=== PATIENT | male | born 1975 | race Caucasian/White ===

== ENCOUNTER 2019-03-09 12:50 | Inpatient (IN) ==
[2019-03-09] MEDS ORDERED: Isovue-370 500 ML BOTTLE IVP ONE (13:36)
[2019-03-09] MEDS ORDERED: Ketorolac 30 MG/ML VIAL IVP ONE (13:39)
[2019-03-09 14:54] LABS: BUN/Creatinine Ratio 6 (6-26); Blood Urea Nitrogen 5 mg/dL (6-20); Calcium 9.1 mg/dL (8.6-10.3); Carbon Dioxide 25 mEq/L (23-29); Chloride 102 mEq/L (98-107); Glucose 90 mg/dL (70-105); Osmolality,Calculated 279 (280-300); Potassium 3.7 mEq/L (3.5-5.1); Sodium 136 mEq/L (136-145); eGFR For African Americans > 60 (> 60); eGFR For Non-African Americans > 60 (> 60)
[2019-03-09 15:09] LABS: Hematocrit 37.8 % (37.5-50.1); Hemoglobin 12.9 g/dL (12.9-16.9); Mean Corpuscular HGB Conc 34.1 g/dL (31.6-35.5); Mean Corpuscular Hemoglobin 34.7 pg (28.0-33.3); Mean Corpuscular Volume 101.6 fL (83.0-100.0); Mean Platelet Volume 10.4 fL (9.4-12.4); Platelet Count 165 K/mcL (140-400); Red Blood Count 3.72 M/mcL (4.19-5.50); Red Cell Distribution Width 13.6 % (11.5-14.5); White Blood Count 4.4 K/mcL (4.3-11.1)
[2019-03-09] MEDS ORDERED: *HR* Heparin 5,000 UNIT/ML VIAL IVP PRN ×2 (16:15)
[2019-03-09] MEDS ORDERED: *HR* Heparin 5,000 UNIT/ML VIAL IVP ONE (16:15)
[2019-03-09] MEDS ORDERED: 0.9 % Sodium Chloride 1,000 ML IVC ONE (16:20)
[2019-03-09] MEDS ORDERED: *HR* HYDROmorphone (PF) 1 MG/ML SYRINGE IVP ONE (16:20)
[2019-03-09] MEDS ORDERED: Clindamycin 600 MG/50 ML 600 MG/50 ML IV.SOLN IVPB ONE (16:30)
[2019-03-09 17:03] LABS: Heparin anti-factor XA UFH 0.01 IU/mL (0.30-0.70); INR 0.9; Prothrombin Time 9.7 Seconds (9.4-12.1)
[2019-03-09] MEDS: Heparin 25,000 UNIT/250 ML D5W 25,000 UNIT/250 ML IV.SOLN IVC SCH (17:07)
[2019-03-09] MEDS ORDERED: Naloxone 0.4 MG/ML INJ IVP PRN (17:42)
[2019-03-09] MEDS ORDERED: Acetaminophen 325 MG TABLET PO PRN (17:42)
[2019-03-09] MEDS ORDERED: Ondansetron ODT 4 MG TAB.RAPDIS SL PRN (17:42)
[2019-03-09] MEDS ORDERED: *HR* LORazepam 2 MG/ML VIAL IVP PRN ×3 (17:46)
[2019-03-09] MEDS ORDERED: Thiamine (B-1) 100 MG in 0.9 % Sodium Chloride 50 ML IVPB STA (18:17)
[2019-03-09] MEDS ORDERED: Vancomycin 500 MG in 0.9 % Sodium Chloride Mini Bag 100 ML IVPB ONE (18:30)
[2019-03-09] MEDS: *HR* LORazepam 1 MG TABLET PO PRN ×2 (18:55→23:40)
[2019-03-09] MEDS: Cefepime HCl 1,000 MG in Water for inj. (sterile) 10 ML IVP SCH (20:28)
[2019-03-09] MEDS ORDERED: NON-FORMULARY MEDICATION 1 EACH EACH (Buprenorphine Hcl/Naloxone Hcl [Suboxone 8 Mg-2 Mg S SL SCH (21:00)
[2019-03-10 02:58] LABS: Hematocrit 35.7 % (37.5-50.1); Mean Corpuscular HGB Conc 33.6 g/dL (31.6-35.5); Mean Corpuscular Hemoglobin 34.5 pg (28.0-33.3); Mean Corpuscular Volume 102.6 fL (83.0-100.0); Mean Platelet Volume 11.3 fL (9.4-12.4); Platelet Count 152 K/mcL (140-400); Red Blood Count 3.48 M/mcL (4.19-5.50); Red Cell Distribution Width 13.7 % (11.5-14.5); White Blood Count 4.5 K/mcL (4.3-11.1)
[2019-03-10 03:05] LABS: BUN/Creatinine Ratio 7 (6-26); Blood Urea Nitrogen 7 mg/dL (6-20); Calcium 8.2 mg/dL (8.6-10.3); Carbon Dioxide 25 mEq/L (23-29); Chloride 104 mEq/L (98-107); Glucose 101 mg/dL (70-105); Osmolality,Calculated 280 (280-300); Sodium 136 mEq/L (136-145); eGFR For African Americans > 60 (> 60); eGFR For Non-African Americans > 60 (> 60)
[2019-03-10] MEDS: Cefepime HCl 1,000 MG in Water for inj. (sterile) 10 ML IVP SCH ×2 (06:32→17:08)
[2019-03-10] MEDS: *HR* LORazepam 1 MG TABLET PO PRN ×3 (06:32→18:28)
[2019-03-10 07:35] LABS: Bilirubin,Urine Negative (Negative); Blood,Urine Negative (Negative); Clarity,Urine Clear (Clear); Color,Urine Yellow (Yellow); Glucose,Urine (UA) Normal (Normal); Ketones,Urine Negative (Negative); Leukocyte Esterase,Urine Negative (Negative); Nitrite,Urine Negative (Negative); Protein,Urine Negative (Neg-Trace); Specific Gravity,Urine 1.018 (1.010-1.025); Urobilinogen,Urine Normal (Normal)
[2019-03-10] MEDS: Nicotine 21 MG PATCH.TD24 TD SCH (09:01)
[2019-03-10] MEDS: Thiamine (B-1) 100 MG TABLET PO SCH (09:01)
[2019-03-10] MEDS: Folic Acid 1 MG TABLET PO SCH (09:01)
[2019-03-10 10:43] LABS: INR 0.9; Prothrombin Time 10.6 Seconds (9.4-12.1)
[2019-03-10] MEDS: *HR* Buprenorphine HCl 8 MG TAB.SUBL SL SCH ×2 (11:27→20:03)
[2019-03-10] MEDS: Ibuprofen 400 MG TABLET PO PRN (11:29)
[2019-03-10] MEDS: Heparin 25,000 UNIT/250 ML D5W 25,000 UNIT/250 ML IV.SOLN IVC SCH (13:24)
[2019-03-10] MEDS ORDERED: *HR* Warfarin 5 MG TABLET PO ONE (18:00)
[2019-03-10] MEDS ORDERED: Warfarin perPT PO PRN (18:00)
[2019-03-11] MEDS: *HR* LORazepam 1 MG TABLET PO PRN ×4 (00:53→21:51)
[2019-03-11 01:34] LABS: Basophils % 0.8 %; Eosinophils # 0.2 K/mcL (0.0-0.6); Eosinophils % 4.6 %; Hematocrit 35.3 % (37.5-50.1); Hemoglobin 11.7 g/dL (12.9-16.9); Immature Granulocytes % 0.3 % (0-4); Lymphocytes # 1.4 K/mcL (0.6-4.6); Lymphocytes % 36.6 %; Mean Corpuscular HGB Conc 33.1 g/dL (31.6-35.5); Mean Corpuscular Hemoglobin 34.5 pg (28.0-33.3); Mean Corpuscular Volume 104.1 fL (83.0-100.0); Mean Platelet Volume 11.1 fL (9.4-12.4); Monocytes # 0.3 K/mcL (0.0-1.3); Monocytes % 7.7 %; Platelet Count 150 K/mcL (140-400); Red Blood Count 3.39 M/mcL (4.19-5.50); Red Cell Distribution Width 13.4 % (11.5-14.5); White Blood Count 3.9 K/mcL (4.3-11.1)
[2019-03-11 01:39] LABS: INR 0.9
[2019-03-11 01:53] LABS: BUN/Creatinine Ratio 9 (6-26); Blood Urea Nitrogen 8 mg/dL (6-20); Calcium 8.8 mg/dL (8.6-10.3); Carbon Dioxide 28 mEq/L (23-29); Chloride 103 mEq/L (98-107); Glucose 97 mg/dL (70-105); Osmolality,Calculated 282 (280-300); Potassium 4.5 mEq/L (3.5-5.1); Sodium 137 mEq/L (136-145); eGFR For African Americans > 60 (> 60); eGFR For Non-African Americans > 60 (> 60)
[2019-03-11] MEDS: Ibuprofen 400 MG TABLET PO PRN ×2 (05:39→16:07)
[2019-03-11] MEDS: Cefepime HCl 1,000 MG in Water for inj. (sterile) 10 ML IVP SCH (05:39)
[2019-03-11] MEDS ORDERED: Aminoglycoside Consult 1 EACH MC ONE (08:53)
[2019-03-11] MEDS: Heparin 25,000 UNIT/250 ML D5W 25,000 UNIT/250 ML IV.SOLN IVC SCH (09:04)
[2019-03-11] MEDS: Nicotine 21 MG PATCH.TD24 TD SCH (09:04)
[2019-03-11] MEDS: Thiamine (B-1) 100 MG TABLET PO SCH (09:06)
[2019-03-11] MEDS: Folic Acid 1 MG TABLET PO SCH (09:06)
[2019-03-11] MEDS: *HR* Buprenorphine HCl 8 MG TAB.SUBL SL SCH ×2 (09:06→21:51)
[2019-03-11] MEDS ORDERED: *HR* Warfarin 5 MG TABLET PO ONE (18:00)
[2019-03-11] MEDS ORDERED: Perflutren Lipid Microsphere 1.3 ML in 0.9 % Sodium Chloride 8.7 ML IVP ONE (18:44)
[2019-03-11] MEDS: Doxycycline 100 MG CAPSULE PO SCH (21:51)
[2019-03-12] MEDS: *HR* LORazepam 1 MG TABLET PO PRN ×5 (01:48→18:19)
[2019-03-12 02:43] LABS: Basophils % 1.2 %; Eosinophils # 0.1 K/mcL (0.0-0.6); Eosinophils % 3.6 %; Hematocrit 34.1 % (37.5-50.1); Hemoglobin 11.6 g/dL (12.9-16.9); Immature Granulocytes % 0.3 % (0-4); Lymphocytes # 1.2 K/mcL (0.6-4.6); Lymphocytes % 36.6 %; Mean Corpuscular Hemoglobin 34.5 pg (28.0-33.3); Mean Corpuscular Volume 101.5 fL (83.0-100.0); Monocytes # 0.3 K/mcL (0.0-1.3); Neutrophils # 1.7 K/mcL (1.6-8.9); Platelet Count 133 K/mcL (140-400); Red Blood Count 3.36 M/mcL (4.19-5.50); Red Cell Distribution Width 13.2 % (11.5-14.5); Segmented Neutrophils % 50.3 %; White Blood Count 3.4 K/mcL (4.3-11.1)
[2019-03-12 02:46] LABS: INR 0.9; Prothrombin Time 10.4 Seconds (9.4-12.1)
[2019-03-12 03:12] LABS: BUN/Creatinine Ratio 11 (6-26); Blood Urea Nitrogen 8 mg/dL (6-20); Calcium 8.8 mg/dL (8.6-10.3); Carbon Dioxide 28 mEq/L (23-29); Chloride 102 mEq/L (98-107); Glucose 113 mg/dL (70-105); Osmolality,Calculated 279 (280-300); Potassium 4.5 mEq/L (3.5-5.1); Sodium 135 mEq/L (136-145); eGFR For African Americans > 60 (> 60); eGFR For Non-African Americans > 60 (> 60)
[2019-03-12] MEDS: Heparin 25,000 UNIT/250 ML D5W 25,000 UNIT/250 ML IV.SOLN IVC SCH (06:08)
[2019-03-12] MEDS: *HR* Buprenorphine HCl 8 MG TAB.SUBL SL SCH ×2 (09:42→21:12)
[2019-03-12] MEDS: Nicotine 21 MG PATCH.TD24 TD SCH (09:42)
[2019-03-12] MEDS: Doxycycline 100 MG CAPSULE PO SCH ×2 (09:43→21:12)
[2019-03-12] MEDS: Thiamine (B-1) 100 MG TABLET PO SCH (09:43)
[2019-03-12] MEDS: Folic Acid 1 MG TABLET PO SCH (09:43)
[2019-03-12] MEDS ORDERED: Furosemide 20 MG/2 ML VIAL IVP ONE (10:24)
[2019-03-12] MEDS ORDERED: Isovue-370 500 ML BOTTLE IVP ONE (15:05)
[2019-03-12] MEDS ORDERED: *HR* Warfarin 7.5 MG TABLET PO ONE (18:00)
[2019-03-13] MEDS: *HR* LORazepam 1 MG TABLET PO PRN ×2 (00:19→09:38)
[2019-03-13] MEDS: Heparin 25,000 UNIT/250 ML D5W 25,000 UNIT/250 ML IV.SOLN IVC SCH (01:47)
[2019-03-13 02:34] LABS: Basophils % 0.8 %; Eosinophils # 0.1 K/mcL (0.0-0.6); Eosinophils % 2.7 %; Hematocrit 35.4 % (37.5-50.1); Hemoglobin 12.3 g/dL (12.9-16.9); Immature Granulocytes % 0.4 % (0-4); Lymphocytes # 1.7 K/mcL (0.6-4.6); Lymphocytes % 34.4 %; Mean Corpuscular HGB Conc 34.7 g/dL (31.6-35.5); Mean Corpuscular Hemoglobin 34.2 pg (28.0-33.3); Mean Corpuscular Volume 98.3 fL (83.0-100.0); Monocytes # 0.4 K/mcL (0.0-1.3); Monocytes % 8.9 %; Neutrophils # 2.6 K/mcL (1.6-8.9); Platelet Count 147 K/mcL (140-400); Red Cell Distribution Width 13.2 % (11.5-14.5); Segmented Neutrophils % 52.8 %; White Blood Count 4.9 K/mcL (4.3-11.1)
[2019-03-13 02:43] LABS: Prothrombin Time 11.1 Seconds (9.4-12.1)
[2019-03-13 03:15] LABS: Alanine Aminotransferase 50 Units/L (7-52); Albumin 3.8 g/dL (3.5-5.7); Albumin/Globulin Ratio 1.4 (1.1-2.2); Alkaline Phosphatase 464 Units/L (34-104); Aspartate Amino Transferase 79 Units/L (13-39); BUN/Creatinine Ratio 13 (6-26); Bilirubin,Direct 0.3 mg/dL (0.0-0.2); Bilirubin,Indirect 0.7 mg/dL (0.0-1.0); Blood Urea Nitrogen 11 mg/dL (6-20); Calcium 9.2 mg/dL (8.6-10.3); Carbon Dioxide 27 mEq/L (23-29); Chloride 99 mEq/L (98-107); Globulin 2.7 g/dL (2.4-3.5); Glucose 96 mg/dL (70-105); Osmolality,Calculated 281 (280-300); Potassium 4.5 mEq/L (3.5-5.1); Sodium 136 mEq/L (136-145); Thyroid Stimulating Hormone 11.267 mcIU/mL (0.340-5.600); Total Protein 6.5 g/dL (6.4-8.9); eGFR For African Americans > 60 (> 60); eGFR For Non-African Americans > 60 (> 60)
[2019-03-13 09:01] LABS: Triiodothyronine (T3) Free 3.35 pg/mL (2.50-3.90)
[2019-03-13] MEDS: Nicotine 21 MG PATCH.TD24 TD SCH (09:38)
[2019-03-13] MEDS: Doxycycline 100 MG CAPSULE PO SCH (09:38)
[2019-03-13] MEDS: Thiamine (B-1) 100 MG TABLET PO SCH (09:38)
[2019-03-13] MEDS: Folic Acid 1 MG TABLET PO SCH (09:38)
[2019-03-13] MEDS: *HR* Buprenorphine HCl 8 MG TAB.SUBL SL SCH ×2 (09:38→21:52)
[2019-03-13 11:15] LABS: Hepatitis B Surface Antigen Nonreactive (Nonreactive)
[2019-03-13] MEDS: Furosemide 40 MG/4 ML VIAL IVP SCH ×2 (11:24→16:59)
[2019-03-13 11:44] LABS: Hepatitis B Core IgM Nonreactive (Nonreactive)
[2019-03-13 11:45] LABS: Hepatitis A Antibody IgM Nonreactive (Nonreactive)
[2019-03-13 13:13] LABS: Hepatitis C Virus Antibody Reactive (Nonreactive)
[2019-03-13] MEDS ORDERED: Ergocalciferol (VIT D2) 50,000 UNIT (1.25MG) CAP PO SCH (16:00)
[2019-03-13] MEDS: Ibuprofen 400 MG TABLET PO PRN (16:59)
[2019-03-13] MEDS ORDERED: *HR* Warfarin 10 MG TABLET PO ONE (18:00)
[2019-03-13] MEDS: *HR* Rivaroxaban 15 MG TABLET PO SCH (18:18)
[2019-03-14 02:05] LABS: Basophils # 0.1 K/mcL (0.0-0.2); Basophils % 1.2 %; Eosinophils # 0.2 K/mcL (0.0-0.6); Eosinophils % 3.5 %; Hematocrit 38.2 % (37.5-50.1); Hemoglobin 12.7 g/dL (12.9-16.9); Immature Granulocytes % 0.5 % (0-4); Lymphocytes # 1.4 K/mcL (0.6-4.6); Lymphocytes % 33.2 %; Mean Corpuscular HGB Conc 33.2 g/dL (31.6-35.5); Mean Corpuscular Hemoglobin 34.4 pg (28.0-33.3); Mean Corpuscular Volume 103.5 fL (83.0-100.0); Mean Platelet Volume 10.9 fL (9.4-12.4); Monocytes # 0.5 K/mcL (0.0-1.3); Monocytes % 10.4 %; Neutrophils # 2.2 K/mcL (1.6-8.9); Platelet Count 146 K/mcL (140-400); Red Blood Count 3.69 M/mcL (4.19-5.50); Red Cell Distribution Width 13.3 % (11.5-14.5); Segmented Neutrophils % 51.2 %; White Blood Count 4.3 K/mcL (4.3-11.1)
[2019-03-14 02:27] LABS: BUN/Creatinine Ratio 13 (6-26); Blood Urea Nitrogen 11 mg/dL (6-20); Calcium 9.2 mg/dL (8.6-10.3); Carbon Dioxide 28 mEq/L (23-29); Chloride 100 mEq/L (98-107); Glucose 103 mg/dL (70-105); Osmolality,Calculated 286 (280-300); Potassium 4.2 mEq/L (3.5-5.1); Sodium 138 mEq/L (136-145); eGFR For African Americans > 60 (> 60); eGFR For Non-African Americans > 60 (> 60)
[2019-03-14] MEDS: *HR* Rivaroxaban 15 MG TABLET PO SCH (05:37)
[2019-03-14 07:30] LABS: INR 1.6; Prothrombin Time 18.2 Seconds (9.4-12.1)
[2019-03-14] MEDS: Ibuprofen 400 MG TABLET PO PRN (09:39)
[2019-03-14] MEDS: Thiamine (B-1) 100 MG TABLET PO SCH (09:40)
[2019-03-14] MEDS: Nicotine 21 MG PATCH.TD24 TD SCH (09:40)
[2019-03-14] MEDS: Furosemide 40 MG/4 ML VIAL IVP SCH (09:40)
[2019-03-14] MEDS: *HR* Buprenorphine HCl 8 MG TAB.SUBL SL SCH (09:41)
[2019-03-14] MEDS: Folic Acid 1 MG TABLET PO SCH (09:41)
[2019-03-14 09:52] VITALS: BP 140/90
[2019-03-15 02:46] LABS: Alkaline Phosphatase 592 U/L (40-120); Alkaline Phosphatase Bone 89 U/L (0-55)
[2019-03-15 10:57] LABS: Alkaline Phosphatase Liver 503 U/L (0-94); Alkaline Phosphatase Other 0 U/L
[2019-03-16 10:58] LABS: HCV Quant Interpretation DETECTED (Not Detected); HCV Quant Log 3.56 log IU/mL
== END 2019-03-14 14:20 | disposition home or self-care (01) | DRG 134 ==
LOC: 2NENU 12:50 → EMEROOARM 12:50 → SUATTDRO 17:07 → 2NENU 17:49 → SUATTDRO 03-10 12:51
PROVIDERS: ADMIT Internal Medicine; ATTEND Internal Medicine